=== PATIENT | female | born 1980 | race Caucasian/White ===

== ENCOUNTER 2016-07-15 18:27 | Emergency (ER) | payer MEDICAID ==
[2016-07-15] MEDS ORDERED: OXYCODONE/APAP 5/325 TAB ONE (19:23)
[2016-07-15] MEDS ORDERED: DIAZEPAM 5 MG TAB ONE (20:40)
[2016-07-15] MEDS ORDERED: CYCLOBENZAPRINE 10 MG TAB ONE (20:46)
== END 2016-07-15 21:10 | disposition home or self-care (01) ==
LOC: ER 18:27
DX: S39.012A Strain of muscle, fascia and tendon of lower back, initial encounter (principal)
CPT/HCPCS: 72100